=== PATIENT | male | born 2000 | race Caucasian/White ===

== ENCOUNTER 2023-06-15 12:05 | Emergency (ER) | payer BC, SELFPAY ==
[2023-06-15 12:12] VITALS: BP 126/82; PULSE 82; RESP 16; TEMP 36.8; O2SAT 98
--- NOTE | 2023-06-15 12:25 | CT_ITS ---
The [address] [address] Patient Name: DIONI SALEH MRN: [id number] date: 2000 Sex: M Assigned Patient Location: ER Current Patient Location: ER Accession/Order Number: [id number] Exam Date: 06/15/2023 12:44 Report Date: 06/15/2023 13:08 At the request of: PRAFUL PUGH Procedure: CT head/brain wo con CT head/brain wo con, 06/15/2023 12:44 PM EST INDICATION: Seizure, hx of seizure disorder COMPARISON: No prior CT scan of the head available for comparison at the time of this dictation. TECHNIQUE: Axial CT images of the brain from skull base to vertex, including portions of the face and sinuses, were obtained without contrast. Multiplanar reformatted images were generated and reviewed as needed. FINDINGS: No intracranial mass, hydrocephalus, midline shift or acute hemorrhage. No extra-axial collection. [place]-white matter differentiation is preserved. The paranasal sinuses and mastoid air cells are clear. Orbits are within normal limits. No acute skull fracture. CT/CT head/brain wo con IMPRESSION: No acute intracranial abnormality. Electronically authenticated by: ALEXANDER HARRY Date: 06/15/2023 13:08
--- NOTE | 2023-06-15 12:26 | ED.SEIZURE1 ---
HPI - Seizure General Chief Complaint: Seizure Stated Complaint: SEIZURES Time Seen by Provider: 06/15/23 12:10 Source: patient Mode of arrival: walk-in History of Present Illness HPI Narrative: 23-year-old male presents to the emergency department for seizures. He has a history of seizure disorder and is on medicine for an hasn't missed a dose is. He's been getting enough sleep and hasn't been ill. No fevers or coughs or vomiting. He was seeing a neurologist but is switching and has an appointment on July 14 in [place]. Having more seizures over the past two weeks. Related Data Allergies Allergy/AdvReac Type Severity Reaction Status Date / Time No Known Drug Allergies Allergy Verified 06/15/23 12:15 Review of Systems ROS Narrative A ten point review of systems is negative except as noted above. Exam Narrative Exam Narrative: Nurses note and vital signs reviewed and patient is not hypoxic. General: The patient appears well and in no apparent distress. Patient is resting comfortably on cart. Skin: Warm, dry, no pallor noted. There is no rash noted. Head: Normocephalic, atraumatic Eye: Normal conjunctiva, no drainage Ears, Nose, Mouth, and Throat: oral mucosa is moist. Nares patent. Cardiovascular: Regular Rate and Rhythm Respiratory: Patient is in no distress, no accessory muscle use, lungs are clear to auscultation, no wheezing, rales or rhonchi Back: non-tender GI: soft and nontender Musculoskeletal: The patient has no evidence of calf tenderness, no pitting edema, symmetrical pulses noted bilaterally Neurological: A&O x4, normal speech; upper and lower extremity strength intact Psychiatric: Cooperative Constitutional Vital Signs, click to edit/add: Last Vital Signs Temp 98.2 F 06/15/23 12:12 Pulse 82 06/15/23 12:12 Resp 16 06/15/23 12:12 BP 126/82 06/15/23 12:12 Pulse Ox 98 06/15/23 12:12 Course Vital Signs Vital signs: Vital Signs Temperature 98.2 F 06/15/23 12:12 Pulse Rate 82 06/15/23 12:12 Respiratory Rate 16 06/15/23 12:12 Blood Pressure 126/82 06/15/23 12:12 Pulse Oximetry 98 06/15/23 12:12 Temperature 98.2 F 06/15/23 12:12 Pulse Rate 82 06/15/23 12:12 Respiratory Rate 16 06/15/23 12:12 Blood Pressure 126/82 06/15/23 12:12 Pulse Oximetry 98 06/15/23 12:12 MDM - Seizure MDM Narrative Medical decision making narrative: blood work and CAT scan are negative. She'll be discharged and will follow up promptly with his neurologist. Treatmennt diagnosis and follow-up were discussed with the patient. Differential Diagnosis Differential diagnosis: Likely intractable seizure disorder, generalized seizure and epileptic seizure Lab Data Attestation: I reviewed the patient's lab results. Labs: Lab Results 06/15/23 Range/Units 12:26 WBC 8.3 (4.0-11.0) 10^3/uL RBC 4.94 (4.70-6.10) 10^6/uL Hgb 14.4 (14.0-18.0) g/dL Hct 44.2 (42.0-54.0) % MCV 89.5 (80.0-94.0) fL MCH 29.1 (25.9-34.0) pg MCHC 32.6 (29.9-35.2) g/dL RDW 12.8 (11.0-15.0) % Plt Count 223 (150-450) 10^3/uL MPV 9.1 L (9.5-13.5) fL Neut % (Auto) 70.0 (43.0-75.0) % Lymph % (Auto) 23.0 (20.5-60.0) % [place] % (Auto) 6.1 (1.7-12.0) % Eos % (Auto) 0.5 L (0.9-7.0) % Baso % (Auto) 0.2 (0.2-2.0) % Neut # (Auto) 5.8 (1.4-6.5) 10^3/uL Lymph # (Auto) 1.9 (1.2-3.8) 10^3/uL [place] # (Auto) 0.5 (0.3-0.8) 10^3/uL Eos # (Auto) 0.0 (0.0-0.7) 10^3/uL Baso # (Auto) 0.0 (0.0-0.1) 10^3/uL Abs Immat Gran (auto) 0.02 (0.00-0.03) 10^3/uL Imm/Tot Granulo (auto) 0.2 (0.0-0.5) % Sodium 141 (136-145) mmol/L Potassium 3.5 (3.5-5.1) mmol/L Chloride 106 (98-107) mmol/L Carbon Dioxide 27.9 (21.0-32.0) mmol/L Anion Gap 10.6 BUN 11.0 (7.0-18.0) mg/dL Creatinine 1.10 (0.70-1.30) mg/dL Est GFR ( Amer) >60 (>=60) Est GFR (Non-Af Amer) >60 (>=60) BUN/Creatinine Ratio 10.0 Glucose 117 H (74-106) mg/dL Calcium 9.1 (8.5-10.1) mg/dL Imaging Data CT scan - head: Radiologist's impression: ITS Impressions Head CT 06/15/23 12:25 IMPRESSION: No acute intracranial abnormality. Electronically authenticated by: ALEXANDER HARRY Date: 06/15/2023 13:08 ECG Data Attestation: I personally reviewed and interpreted this ECG as follows: (EKG on my interpretation shows normal sinus rhythm without acute change in a rate of 76.) Discharge Plan Discharge Chief Complaint: Seizure Clinical Impression: Breakthrough seizure Patient Disposition: Home, Self-Care Time of Disposition Decision: 13:17 Condition: Good Mode of Transportation: Private Vehicle Instructions: Recurrent Seizures in Adults (ED) Additional Instructions: Follow-up with your neurologist and continue to take your current medications. Stand Alone Forms: Portal Instructions Referrals: CHRISTIANO LEON [Primary Care Provider] - 1 week
[2023-06-15 12:41] LABS: Basophils Percent Auto 0.2 % (0.2-2.0); Eosinophils Percent Auto 0.5 % (0.9-7.0); Hematocrit 44.2 % (42.0-54.0); Hemoglobin 14.4 g/dL (14.0-18.0); Immature Granulocytes Abs Auto 0.02 10^3/uL (0.00-0.03); Immature Granulocytes Pct Auto 0.2 % (0.0-0.5); Lymphocytes Absolute Auto 1.9 10^3/uL (1.2-3.8); Mean Corpuscular HGB Conc 32.6 g/dL (29.9-35.2); Mean Corpuscular Hemoglobin 29.1 pg (25.9-34.0); Mean Corpuscular Volume 89.5 fL (80.0-94.0); Mean Platelet Volume 9.1 fL (9.5-13.5); Monocytes Absolute Auto 0.5 10^3/uL (0.3-0.8); Monocytes Percent Auto 6.1 % (1.7-12.0); Neutrophils Absolute Auto 5.8 10^3/uL (1.4-6.5); Platelet Count 223 10^3/uL (150-450); Red Blood Count 4.94 10^6/uL (4.70-6.10); Red Cell Distribution Width 12.8 % (11.0-15.0); White Blood Count 8.3 10^3/uL (4.0-11.0)
[2023-06-15 12:57] LABS: Anion Gap 10.6; Calcium 9.1 mg/dL (8.5-10.1); Carbon Dioxide 27.9 mmol/L (21.0-32.0); Chloride 106 mmol/L (98-107); Estimated GFR (African America >60 (>=60); Estimated GFR (Non-African Ame >60 (>=60); Glucose 117 mg/dL (74-106); Potassium 3.5 mmol/L (3.5-5.1); Sodium 141 mmol/L (136-145)
[2023-06-15 13:51] VITALS: BP 123/74; PULSE 74; RESP 16
== END 2023-06-15 13:52 | disposition home or self-care (01) ==
PROVIDERS: Emergency Provider Emergency Medicine; PCP Family Medicine
DX: G40.909 Epilepsy, unspecified, not intractable, without status epilepticus (principal); Z79.899 Other long term (current) drug therapy
CPT/HCPCS: 36415; 70450; 80048; 85025; 93005; 99285